=== PATIENT | male | born 1995 | race Caucasian/White ===

== ENCOUNTER 2017-04-20 17:40 | Emergency (ER) | payer OTHER ==
[2017-04-20 17:44] VITALS: O2SAT 97
--- NOTE | 2017-04-20 18:19 | EDPHY ---
H & P Smoking Status: Never smoked Time Seen by Provider: 04/20/17 18:08 HPI/ROS: CHIEF COMPLAINT: Shoulder injury HISTORY OF PRESENT ILLNESS: 22-year-old male presents to the emergency department with right shoulder injury. The patient was skiing around noon today at [place] and went off of a jump and caught an edge and fell directly on his right shoulder. He was able to ski down and he actually drove himself home. He did not hit his head or lose consciousness. He denies numbness or tingling in his fingers. He is right-hand dominant. He has had a previous right shoulder injury and use his own sling at home. He denies any other trauma or injury. Denies neck or back pain. Denies chest pain or difficulty breathing. Denies injury to the lower extremities. REVIEW OF SYSTEMS: Constitutional: No fever, no chills. Eyes: No double or blurry vision. ENT: No sore throat. Respiratory: No cough, no shortness of breath. Cardiac: No chest pain. Gastrointestinal: No abdominal pain, vomiting or diarrhea. Genitourinary: No dysuria. Musculoskeletal: No neck or back pain. Skin: No rashes. Neurological: No headache. (Daxa Hardwick) Past Medical/Surgical History: Right greater tuberosity fracture 2017 (Daxa Hardwick) Social History: Single (Daxa Hardwick) Physical Exam: General Appearance: Alert, no distress. No visible signs of trauma to his head. Mentating normally and answering questions appropriately. Eyes: Pupils equal and round. Extraocular motions are all intact. ENT: Mouth: Mucous membranes moist. Respiratory: No wheezing, rhonchi, or rales, lungs are clear to auscultation. Cardiovascular: Regular rate and rhythm. Gastrointestinal: Abdomen is soft and nontender, no masses, no rebound or guarding, bowel sounds normal. Neurological: Alert and oriented x 3, cranial nerves II through XII grossly intact Skin: Warm and dry, no rashes. Musculoskeletal: Nontender to palpate along the cervical, thoracic or lumbar spine. Neck is supple. Extremities: Tenderness with palpation especially the midshaft of the right clavicle. No evidence of skin tenting. No abrasion or puncture wound noted. Limited range of motion of the right shoulder secondary to pain. Full range of motion of his right elbow and right wrist. Normal sensation to light touch with normal 2 point discrimination. Normal and equal strength for the upper extremities bilaterally. Normal gait. Psychiatric: Patient is oriented X 3, there is no agitation. (Daxa Hardwick) Constitutional: Initial Vital Signs Temperature (C) 36.8 C 04/20/17 17:42 Heart Rate 64 04/20/17 17:42 Respiratory Rate 16 04/20/17 17:42 Blood Pressure 135/71 H 04/20/17 17:42 O2 Sat (%) 97 04/20/17 17:42 O2 Delivery Mode Room Air Allergies/Adverse Reactions: No Known Allergies Allergy (Unverified 04/20/17 17:41) Home Medications: Medication Instructions Recorded NK [No Known Home Meds] 04/20/17 Medical Decision Making - Diagnostics Imaging: I viewed and interpreted images myself Procedures: Patient was placed in a sling and examined post application in good placement with normal [employer] MANAGER. (Daxa Hardwick) ED Course/Re-evaluation: 22-year-old male presents to the emergency department with right shoulder injury. X-rays reveal midshaft clavicular fracture with angulation. There is no evidence of skin tenting. He was placed in a sling and given orthopedic referral. (Daxa Hardwick) Differential Diagnosis: Including but not limited to fracture, dislocation, contusion, sprain (Daxa Hardwick) Other Provider: PHYSICIAN DOCUMENTATION: The patient was evaluated and managed by the Physician Buyer Planner. My co- signature indicates that I have reviewed this chart and I agree with the findings and plan of care as documented. I am the secondary supervising physician. (Tavo Gregory) Departure - Departure Disposition: Home, Routine, Self-Care Clinical Impression: Right clavicle fracture Qualifiers: Encounter type: initial encounter Clavicle location: shaft Fracture type: closed Fracture alignment: displaced Qualified Code(s): S42.021A - Displaced fracture of shaft of right clavicle, initial encounter for closed fracture Condition: Good Instructions: Clavicle Fracture (ED) Additional Instructions: Sling for comfort and support. Follow up with orthopedic surgeon this week to recheck. Ibuprofen 600 mg every 8 hr as needed for pain. Referrals: Renato Elizabeth MD [Medical Doctor] - 2-3 days without fail (Orthopedic surgeon on-call)
[2017-04-20 19:30] VITALS: BP 130/82; PULSE 52; RESP 18; TEMP 98.6
== END 2017-04-20 19:31 | disposition home or self-care (01) ==
DX: S42.021A Displaced fracture of shaft of right clavicle, initial encounter for closed fracture (principal); V00.321A Fall from snow-skis, initial encounter; Y99.8 Other external cause status; Y93.23 Activity, snow (alpine) (downhill) skiing, snowboarding, sledding, tobogganing and snow tubing
CPT/HCPCS: A4565